=== PATIENT | male | born 2000 | race African-American/Black ===

== ENCOUNTER 2020-06-14 13:55 | Emergency (ER) | payer MEDICAID ==
[~2020-06-14] VITALS: Ht 195.6 cm; Wt 100.0 kg
[2020-06-14 14:17] VITALS: BP 138/67
== END 2020-06-14 16:00 | disposition home or self-care (01) ==
LOC: ER 13:55
DX: S62.325A Displaced fracture of shaft of fourth metacarpal bone, left hand, initial encounter for closed fracture (principal); S62.337A Displaced fracture of neck of fifth metacarpal bone, left hand, initial encounter for closed fracture; Y04.0XXA Assault by unarmed brawl or fight, initial encounter; Y93.89 Activity, other specified; Y92.89 Other specified places as the place of occurrence of the external cause
CPT/HCPCS: 29125; 73130; 99283

== ENCOUNTER 2021-04-23 17:50 | Emergency (ER) | payer MEDICAID, OTHER ==
[~2021-04-23] VITALS: Ht 195.6 cm; Wt 101.0 kg
[2021-04-23] MEDS ORDERED: ONDANSETRON 4MG ODT PO ONE (21:30)
[2021-04-23] MEDS ORDERED: KETOROLAC 60MG/2ML VIAL IM ONE (21:30)
[2021-04-23] MEDS ORDERED: IBUP-2029 MT (21:53)
[2021-04-23 22:10] VITALS: BP 121/66
== END 2021-04-24 00:17 | disposition home or self-care (01) ==
LOC: ER 21:59
DX: M54.5 Low back pain (principal); R51.9 Headache, unspecified; V49.49XA Driver injured in collision with other motor vehicles in traffic accident, initial encounter; Y93.89 Activity, other specified; Y92.488 Other paved roadways as the place of occurrence of the external cause
CPT/HCPCS: 96372; 99283; J1885; Q0162

== ENCOUNTER 2022-03-28 00:58 | Emergency (ER) | payer MEDICAID, OTHER ==
[~2022-03-28] VITALS: Ht 195.6 cm; Wt 105.0 kg
[~2022-03-28 00:58] MED LIST: IBUP-2029 MT
[2022-03-28 04:08] VITALS: BP 112/64
== END 2022-03-28 04:17 | disposition home or self-care (01) ==
LOC: ER 00:58
DX: T18.9XXA Foreign body of alimentary tract, part unspecified, initial encounter (principal); X58.XXXA Exposure to other specified factors, initial encounter; Y93.89 Activity, other specified; Y92.89 Other specified places as the place of occurrence of the external cause; Y99.8 Other external cause status
CPT/HCPCS: 70360; 71045; 99284

== ENCOUNTER 2024-02-14 12:44 | Emergency (ER) | payer MEDICAID, OTHER ==
[~2024-02-14] VITALS: Ht 195.6 cm; Wt 88.0 kg
[2024-02-14 12:54] VITALS: BP 114/59; PULSE 89; RESP 16; TEMP 98.3; O2SAT 100
[2024-02-14] MEDS ORDERED: IBUP-2029 MT (14:40)
== END 2024-02-14 15:12 | disposition home or self-care (01) ==
LOC: ER 12:44
DX: S93.491A Sprain of other ligament of right ankle, initial encounter (principal); Z88.6 Allergy status to analgesic agent; X58.XXXA Exposure to other specified factors, initial encounter; Y93.89 Activity, other specified; Y92.89 Other specified places as the place of occurrence of the external cause; Y99.8 Other external cause status
CPT/HCPCS: 73610; 99283; Z7610